=== PATIENT | female | born 1995 | race Caucasian/White ===

== ENCOUNTER 2016-09-10 03:27 | Emergency (ER) | payer OTHER ==
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
--- NOTE | 2016-09-10 05:16 | ED MAR SUMMARY ---
..... Medication Administration Record [facility] [address] [place], [place] [id number] Patient: LACHELLE AMADO Visit ID: [id number] 20y, F Weight: 100.2 kg Height/Length: 64 in BMI: 37.9 ALLERGIES: Red Dye
--- NOTE | 2016-09-10 05:16 | ED MED RECONCILIATION SUMMARY ---
Patient: LACHELLE AMADO Medication Reconciliation Report [facility] VisitID: [id number] [address] [place] [address] 20y, F Registration Date/Time: 09/10/2016 Weight: 100.2 kg Height/Length: 64 in. BMI: 37.9 ALLERGIES: Red Dye The patient's Home Medications are listed below: NONE. The source(s) of the original Home Medication information: Not obtained. The following Medications were given to the patient in the Emergency Department: None. The following Medications were prescribed to the patient: None.
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
--- NOTE | 2016-09-10 05:16 | ED MAR SUMMARY ---
..... Medication Administration Record [facility] [address] [place], [place] [id number] Patient: LACHELLE AMADO Visit ID: [id number] 20y, F Weight: 100.2 kg Height/Length: 64 in BMI: 37.9 ALLERGIES: Red Dye
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
--- NOTE | 2016-09-10 05:16 | ED MED RECONCILIATION SUMMARY ---
Patient: LACHELLE AMADO Medication Reconciliation Report [facility] VisitID: [id number] [address] [place] [address] 20y, F Registration Date/Time: 09/10/2016 Weight: 100.2 kg Height/Length: 64 in. BMI: 37.9 ALLERGIES: Red Dye The patient's Home Medications are listed below: NONE. The source(s) of the original Home Medication information: Not obtained. The following Medications were given to the patient in the Emergency Department: None. The following Medications were prescribed to the patient: None.
== END 2016-09-10 04:05 | disposition home or self-care (01) ==
LOC: ED SRH 03:27
DX: S16.1XXA Strain of muscle, fascia and tendon at neck level, initial encounter (principal); V47.0XXA Car driver injured in collision with fixed or stationary object in nontraffic accident, initial encounter; Y93.89 Activity, other specified